=== PATIENT | male | born 2005 | race Caucasian/White ===

== ENCOUNTER 2025-02-05 22:38 | Emergency (ER) | payer OTHER ==
[~2025-02-05] VITALS: Ht 165.1 cm; Wt 53.6 kg
[2025-02-05 23:21] LABS: PLATELET COUNT (AUTO) 292 K/uL (150-450); RED BLOOD CELL COUNT(AUTO) 5.18 MIL/uL (4.50-5.90); RED CELL DISTRIBUTION WIDTH 13.3 % (11.5-14.5); WHITE BLOOD COUNT (AUTO) 12.3 K/uL (4.5-11.0)
[2025-02-05 23:22] LABS: COVID AG,FIA SOURCE NASAL SWAB
[2025-02-05 23:27] LABS: SARS-COV2 (COVID) ANTIGEN,FIA Negative (Negative)
[2025-02-05 23:34] LABS: CALCIUM, TOTAL 9.2 mg/dL (8.8-10.5); CREATININE 0.96 mg/dL (0.60-1.30); GLOMERULAR FILTR. RATE CALC > 60 mL/min (>60); GLUCOSE,RANDOM 93 mg/dL (70-110); SODIUM SERUM 140 mmol/L (136-145); UREA NITROGEN, BLOOD 12 mg/dL (7-18)
[2025-02-06 00:08] LABS: APPEARANCE,URINE CLEAR (CLEAR); GLUCOSE, URINE (UA) NEGATIVE (NEGATIVE); LEUKOCYTE ESTERASE ,URINE NEGATIVE (NEGATIVE); NITRATE,URINE NEGATIVE (NEGATIVE); OCCULT BLOOD,URINE NEGATIVE (NEGATIVE); PH,URINE DRUG SCREEN 6.0 (5.0-8.0); SPECIFIC GRAVITIY, URINE 1.018 (1.003-1.030)
[2025-02-06 00:14] LABS: ALCOHOL, URINE DRUG SCREEN NEGATIVE (NEGATIVE); AMPHET/METH SCREEN,URINE NEGATIVE (NEGATIVE); BARBITURATE SCREEN, URINE NEGATIVE (NEGATIVE); CANNABINOID SCREEN,URINE POSITIVE (NEGATIVE); COCAINE SCREEN,URINE NEGATIVE (NEGATIVE); METHADONE SCREEN, URINE NEGATIVE (NEGATIVE)
[2025-02-06 05:49] VITALS: BP 115/70; PULSE 61; RESP 16; TEMP 98.1; O2SAT 100
== END 2025-02-06 07:10 ==
LOC: EMS 22:40
DX: F32.9 Major depressive disorder, single episode, unspecified (principal); R45.851 Suicidal ideations; Z20.822 Contact with and (suspected) exposure to COVID-19
CPT/HCPCS: 99285; 87426; 80048; 81003; 85025; 36415; 80307; G0480